=== PATIENT | female | born 1930 | race Caucasian/White ===

== ENCOUNTER 2016-10-14 12:16 | Emergency (ER) | payer MEDICARE, OTHER ==
[~2016-10-14 12:16] MED LIST: ASPI-973 PO; DOCU-41 PO; FERR324T2 PO; LEVO500T16 PO; LISI-567 PO
[2016-10-14 12:18] VITALS: BP 170/69; PULSE 72; RESP 19; O2SAT 100
--- NOTE | 2016-10-14 12:26 | ED.REPORT ---
HPI-Syncope Date of Service Oct 14, 2016 ED Provider: Dr. Mitchell Pt is an 85 y/o female w/ a hx of dementia, presenting to the ED via EMS from [facility] due to decreased LOC prior to arrival. According to her caretakers, the patient was sitting in her sit-walker when she slumped over to the side and became unresponsive for 4 minutes. She was noted to be dry heaving and tachypneic (35-45 resp/min). Medics applied a non-rebreather with resolve of her dyspnea. Her O2 sat is 100% on RA during interivew. When asked if she is experiencing pain, she states "I don't have any pain right now because I would love to go to the confucianism". Further/personal history is limited secondary to mental status. After interview with son and daughter. They believe she is at baseline at current time. Code status discussed. They state that her code status is DNR and they would like basic diagnostics to be performed today. Nursing Notes Stated Complaint: SYNCOPY Chief Complaint: Neuro Symptoms/ Deficits Nursing Notes Reviewed: Yes Allergies: Coded Allergies: No Known Allergies (Verified , 10/14/16) Scheduled Aspirin (Aspirin) 81 Mg Tablet 81 MG PO DAILY Docusate Sodium (Colace) 100 Mg Capsule 100 MG PO BID Ferrous Sulfate (Ferrous Sulfate) 324 Mg Tablet. 324 MG PO DAILY Levofloxacin (Levaquin) 500 Mg Tablet 500 MG PO DAILY Lisinopril (Lisinopril) 20 Mg Tablet 10 MG PO DAILY General Time Seen by Provider: 12:27 Chief Complaint Became unresponsive Hx Obtained From: Patient, Career Based Intervention Coordinator, EMS Unable to Obtain Hx: Mental status Arrived By: Ambulance Onset Occurred: Just prior to arrival Symptom Duration: Since onset Severity: Current: No pain currently Severity: Maximum: No pain Past Medical History Past Medical History Notes: ED visit 05/10/15 Dx: Confusion Admit 04/2014 - Altered LOC, UTI Past Medical History bilateral carpal tunnel syndrome History of atrial flutter h/o "confusion secondary to emotional stress with distant history of schizophrenia" hypertension h/o systolic murmur. Esophageal stricture Systolic heart murmur Past Surgical History Per old reports symptomatic cystocele and rectocele----> Anterior and posterior repair Appendectomy termination in 1959 Family History noncontributory Smoking History Never Smoker Social History Lives with son Drug Use: Denies drug use Other Social History: Good social support, Local resident Ambulatory Status Independent Review of Systems Unable to Obtain ROS Mental status Respiratory: Reports: Shortness of breath Cardiovascular: Denies: Chest pain GI: Reports: Nausea, Denies: Abdominal pain, Vomiting Neurologic: Reports: Change LOC, Syncope, Denies: Headache Complete sys rev & neg: except as marked. Physical Exam Initial Vital Signs Vital Signs (First) Date Time Temp Pulse Resp B/P Pulse Ox O2 Delivery O2 Flow Rate FiO2 10/14/16 12:18 35.4 72 19 170/69 100 Non-Rebreather 6 Initial VS: Reviewed, Vital signs abnormal Head / Eyes: Atraumatic, Normocephalic, PERRL ENT: Mucous membranes moist, Conjunctiva normal, No scleral icterus Neck: Supple, Full range of motion Abdomen / GI: Soft, Non-tender Upper Extremities: Vascular intact, Neuro intact, No swelling, No tenderness Skin: Warm, Dry, No cyanosis Psychiatric: Mood/affect normal, Behavior normal General/Constitutional: Awake, No acute distress, Well appearing, Cooperative, Not toxic appearing Alertness: Positive: Confused Respiratory / Chest: Atraumatic, Breath sounds NL, Breath sounds = bilat, No respiratory distress, No rales, No rhonchi, No wheezing, No retractions, No stridor, No chest tenderness, No chest wall deformity, No crepitus Cardiovascular: Heart rate NL, Regular rhythm, No gallop, No rubs, Cap refill not delayed, Peripheral circulation NL Heart Sounds / Murmur: Positive: Systolic murmur present.. (III/, right second intercostal space) Trace edema bilaterally Lower Extremity / Pelvis / MS: Atraumatic, Full range of motion, Non-tender, No erythema, No deformity, Neurologic intact, Vascular intact Trace pitting edema bilat Neurologic: Speech NL, No motor deficits, No sensory deficits Mental Status: Positive: Confused, Disoriented to place, Disoriented to time Pleasantly demented Interpretation & Diagnostics Lab Results Interpretation Result Diagram: 10/14/16 1215 10/14/16 1215 Test 10/14/16 12:15 10/14/16 13:34 White Blood Count 6.5th/mm3 (3.8-10.1) Red Blood Count 4.09mil/mm3 (3.90-5.20) Hemoglobin 12.2g/dL (12.0-15.6) Hematocrit 37.5% (35.0-46.0) Mean Corpuscular Volume 91.7fL (81-100) Mean Corpuscular Hemoglobin 29.8pg (27.0-35.0) Mean Corpuscular Hemoglobin Concent 32.5% (32.0-37.0) Red Cell Distribution Width 12.9% (12.3-15.4) Platelet Count 267bil/L (150-400) Neutrophils (%) (Auto) 55.4% (40-74) Lymphocytes (%) (Auto) 30.4% (14-46) Monocytes (%) (Auto) 10.2% (4-12) Eosinophils (%) (Auto) 2.6% (0-5) Basophils (%) (Auto) 1.1% (0-3) Sodium Level 137mEq/L (134-144) Potassium Level 4.1mEq/L (3.5-5.2) Chloride Level 97mEq/L (97-108) Carbon Dioxide Level 23mmol/L (18-29) Blood Urea Nitrogen 23mg/dL (8-27) Creatinine 1.02mg/dL (0.57-1.00) Estimat Glomerular Filtration Rate 74mL/min (>59) Glucose Level 112mg/dL (60-99) Calcium Level 9.8mg/dL (8.5-10.1) Magnesium Level 2.2mg/dL (1.6-2.6) Total Bilirubin 0.5mg/dL (0.0-1.2) Aspartate Amino Transf (AST/SGOT) 16U/L (0-50) Alanine Aminotransferase (ALT/SGPT) 7U/L (0-32) Alkaline Phosphatase 73U/L (25-165) Troponin T < 0.010ug/L (0.0-0.011) Total Protein 7.7g/dL (6.4-8.4) Albumin 4.3g/dL (3.4-5.0) Urine Color Yellow (YELLOW) Urine Appearance Clear (CLEAR,HAZY) Urine pH 8.0 (5.0-8.0) Urine Specific [place] 1.015 (1.003-1.035) Urine Protein Negativemg/dL (NEG,TRACE) Urine Glucose (UA) Negativemg/dL (NEGATIVE) Urine Ketones 15mg/dL (NEGATIVE) Urine Occult Blood Negative (NEGATIVE) Urine Nitrite Negative (NEGATIVE) Urine Bilirubin Negative (NEGATIVE) Urine Urobilinogen Normalmg/dL (NORMAL) Urine Leukocyte Esterase Negative (NEGATIVE) Urine RBC 0-2/hpf (0-2) Urine WBC 0-5/hpf (0-5) Urine Epithelial Cells Few/hpf (NONE-MOD) Urine Crystals None seen (NONE SEEN) Urine Bacteria None/hpf (NONE-FEW) Urine Hyaline Casts None/lpf (NONE) Urine Granular Casts None seen (NONE SEEN) Urine Waxy Casts None seen (NONE SEEN) Urine Red Blood Cell Casts None seen (NONE SEEN) Urine White Blood Cell Casts None seen (NONE SEEN) Urine Mucus None seen (None Seen) Urine Trichomonas None seen (NONE SEEN) Urine Yeast None (NONE SEEN) Urinalysis Comment None Urine Culture Reflexed Not indicated ECG Interpretation Time: 13:00 Interpreted by: ED physician Normal ECG Interpretation: Normal ECG w/ rate of... (65), Normal rate, Normal sinus rhythm, No acute ischemic changes, Normal QRS, Normal axis, Normal intervals, Adequate tracing X-Ray Chest Interpretation Chest Xray Interpretation: IMPRESSION: No acute process. Concordant with preliminary interpretation. Dictated by: Dago Saeed M.D. on 10/14/2016 at 13:14 Approved by: Dago Saeed M.D. on 10/14/2016 at 13:14 View: Portable, 1 view Interpretation / Wet Read by: Interpret - Radiologist Re-Eval/Medical Decision Med Decision/Clinical Course She had a fairly dramatic presentation according to the staff at the [facility] but we have identified no abnormalities here. The patient is comfortable and cooperative in every way though pleasantly demented and disoriented. Family at the bedside say that she seems normal to them as well. Counseled Regarding: Diagnosis, Lab results, Need for follow-up, When/why to return to ED Discharge & Departure Impression: Primary Impression: Altered level of consciousness Disposition: Home Discharge Condition All VS Reviewed: Yes Condition: Stable Additional Instructions: Shannon is back to normal/baseline at this point. Thorough evaluation including x- ray, blood and urine evaluation and EKG do not elucidate the cause for the symptoms today. I recommend watchful waiting for the time being to see if some more distinct or clear-cut cause for these symptoms develops. Referrals: Joao Espinoza MD (PCP) Dmitri Attestation Portions of this note were transcribed by Thiago Dyer. I, Dr. Mitchell personally performed the history, physical exam and medical decision-making; I reviewed and confirmed the accuracy of the information in the transcribed note. Signed by Dmitri Heller, 10/14/16 - [id number] copies to: Joao Espinoza MD, Kirk H MD Oct 14, 2016 12:26 THIAGO DYER Oct 14, 2016 12:37
[2016-10-14 12:51] LABS: BASOPHILS % (AUTO) 1.1 % (0-3); EOSINOPHILS % (AUTO) 2.6 % (0-5); MONOCYTES % (AUTO) 10.2 % (4-12); Mean Corpuscular Hemoglobin 29.8 pg (27.0-35.0); Mean Corpuscular Volume 91.7 fL (81-100); NEUTROPHILS % (AUTO) 55.4 % (40-74); Platelet Count 267 bil/L (150-400)
[2016-10-14 13:15] LABS: Magnesium 2.2 mg/dL (1.6-2.6); TROPONIN T < 0.010 ug/L (0.0-0.011)
--- NOTE | 2016-10-14 13:16 | DRSVH ---
PROCEDURE: X-RAY CHEST ONE VIEW, PORTABLE ([id number]) INDICATIONS: tachypnea TECHNIQUE: One view of the chest was acquired. COMPARISON: [facility], CR, XR CHEST 2VW, 02/15/2016, 11:54. FINDINGS: Surgical changes and devices: None. Lungs and pleura: No pleural effusions or pneumothorax. Lungs are clear. Mediastinum: Mediastinal contours appear normal. Heart size is enlarged. Bones and chest wall: No suspicious bony lesions. Overlying soft tissues appear unremarkable. IMPRESSION: No acute process. Concordant with preliminary interpretation. Dictated by: Dago Saeed M.D. on 10/14/2016 at 13:14 Approved by: Dago Saeed M.D. on 10/14/2016 at 13:14
[2016-10-14 14:20] LABS: APPEARANCE,URINE CLEAR (CLEAR,HAZY); COLOR,URINE YELLOW (YELLOW); OCCULT BLOOD,URINE NEGATIVE (NEGATIVE); UROBILINOGEN,URINE NORMAL (NORMAL)
[2016-10-14 15:08] VITALS: BP 153/61; PULSE 62; RESP 20; O2SAT 99
[2016-10-14 15:16] VITALS: BP 156/70; PULSE 65; RESP 18; O2SAT 100
[2016-10-14 15:42] VITALS: BP 156/70; PULSE 65; RESP 18; O2SAT 100
== END 2016-10-14 15:40 | disposition home or self-care (01) ==
LOC: SED 12:16
DX: R40.4 Transient alteration of awareness (principal); R06.82 Tachypnea, not elsewhere classified; I10 Essential (primary) hypertension; F03.90 Unspecified dementia, unspecified severity, without behavioral disturbance, psychotic disturbance, mood disturbance, and anxiety; F20.9 Schizophrenia, unspecified; Z79.82 Long term (current) use of aspirin; Z66 Do not resuscitate